=== PATIENT | female | born 1975 | race Caucasian/White ===

== ENCOUNTER 2022-08-07 20:49 | Emergency (ER) | payer BC | END 2022-08-07 21:45 | disposition home or self-care (01) | LOC: KA.ED 20:49 | DX: S92.511A Displaced fracture of proximal phalanx of right lesser toe(s), initial encounter for closed fracture (principal); Z88.1 Allergy status to other antibiotic agents; Z88.8 Allergy status to other drugs, medicaments and biological substances; W22.09XA Striking against other stationary object, initial encounter | CPT/HCPCS: 28515; 73660-T8; 99283 ==

== ENCOUNTER 2024-08-07 20:39 | Emergency (ER) | payer BC ==
[2024-08-07] MEDS: Lidocaine 1% 5 ML VIAL INJECT ONE (21:15)
[2024-08-07] MEDS: Lidocaine 1% 5 ML VIAL ONE (21:30)
== END 2024-08-07 21:36 | disposition home or self-care (01) ==
LOC: KA.ED 20:39
DX: S61.411A Laceration without foreign body of right hand, initial encounter (principal); Z88.1 Allergy status to other antibiotic agents; Z88.8 Allergy status to other drugs, medicaments and biological substances; W26.0XXA Contact with knife, initial encounter
CPT/HCPCS: 12001; 99282; 99283; J3490